=== PATIENT | female | born 1985 | race Caucasian/White ===

== ENCOUNTER → 2021-01-05 | Outpatient (REF) | payer OTHER ==
[2021-01-05 17:07] LABS: APPEARANCE, URINE CLOUDY (CLEAR); BACTERIA, URINE AUTO 1+ (NEGATIVE); BILIRUBIN, URINE AUTO NEGATIVE (NEGATIVE); BLOOD, URINE BLOOD 1+ (NEGATIVE); COLOR, URINE YELLOW (YELLOW); GLUCOSE, URINE (UA) AUTO NEGATIVE (NEGATIVE); KETONE, URINE AUTO NEGATIVE (NEGATIVE); LEUKOCYTE ESTERASE, URINE AUTO 3+ (NEGATIVE); MUCUS, URINE SMALL (NEGATIVE); NITRITE, URINE AUTO NEGATIVE (NEGATIVE); PROTEIN, URINE AUTO 1+ mg/dL (NEGATIVE); RBC, URINE AUTO 15 /HPF (0-3); SPECIFIC GRAVITY URINE AUTO 1.016 (1.002-1.035); SQUAMOUS EPITHELIAL CELL UR AU 1 /HPF (0-6); UROBILINOGEN, URINE AUTO 0.2 mg/dL (0.0-2.0); WBC, URINE AUTO TNTC /HPF (0-3)
== END ==
LOC: M LAB REF 16:36
PROVIDERS: ATTEND Physician Assistant
DX: N39.0 Urinary tract infection, site not specified (principal)

== ENCOUNTER → 2022-09-25 | Outpatient (CLI) | payer OTHER ==
[2022-09-25 11:20] LABS: HEMATOCRIT 38.3 % (36.0-47.0)
[2022-09-25 11:21] LABS: APPEARANCE, URINE HAZY (CLEAR); BACTERIA, URINE AUTO 1+ (NEGATIVE); BILIRUBIN, URINE AUTO NEGATIVE (NEGATIVE); BLOOD, URINE BLOOD NEGATIVE (NEGATIVE); COLOR, URINE YELLOW (YELLOW); GLUCOSE, URINE (UA) AUTO NEGATIVE (NEGATIVE); KETONE, URINE AUTO NEGATIVE (NEGATIVE); LEUKOCYTE ESTERASE, URINE AUTO TRACE (NEGATIVE); MUCUS, URINE SMALL (NEGATIVE); NITRITE, URINE AUTO NEGATIVE (NEGATIVE); PROTEIN, URINE AUTO NEGATIVE (NEGATIVE); RBC, URINE AUTO 1 /HPF (0-3); SPECIFIC GRAVITY URINE AUTO 1.026 (1.002-1.035); SQUAMOUS EPITHELIAL CELL UR AU 11 /HPF (0-6); WBC, URINE AUTO 8 /HPF (0-3)
[2022-09-25 11:22] LABS: BASO # 0.1 10^3/uL (0.0-0.2); BASO % 0.4 % (0.0-1.0); EOS # 0.2 10^3/uL (0.0-0.5); EOS % 1.4 % (0.0-3.0); HEMATOCRIT 38.7 % (36.0-47.0); HEMOGLOBIN 12.6 g/dl (12.0-15.5); LYMPH # 2.9 10^3/uL (1.5-5.0); LYMPH % 22.1 % (24.0-44.0); MEAN CORPUSCULAR HEMOGLOBIN 30.7 pg (27.0-33.0); MEAN CORPUSCULAR HGB CONC 32.6 g/dl (32.0-36.5); MEAN CORPUSCULAR VOLUME 94.4 fl (80.0-96.0); MONO # 0.9 10^3/uL (0.0-0.8); MONO % 6.5 % (2.0-8.0); NEUTROPHILS % 69.1 % (36.0-66.0); PLATELET COUNT, AUTOMATED 284 10^3/uL (150-450)
[2022-09-25 11:34] LABS: HEMOGLOBIN A1c 5.5 % (4.0-6.0)
[2022-09-25 11:57] LABS: ALBUMIN 3.7 G/DL (3.2-5.2); ALKALINE PHOSPHATASE 83 U/L (46-116); ALT/SGPT < 9 U/L (7.0-40); AST/SGOT < 8 U/L (<34); BILIRUBIN,TOTAL 0.3 MG/DL (0.3-1.2); BLOOD UREA NITROGEN 14 MG/DL (9-23); CALCIUM LEVEL 9.1 MG/DL (8.5-10.1); CARBON DIOXIDE LEVEL 29 MMOL/L (20-31); CHLORIDE LEVEL 105 MMOL/L (98-107); CHOLESTEROL LEVEL 203 MG/DL (<200); CHOLESTEROL RISK RATIO 4.85 (<5); CREATININE FOR GFR 0.85 MG/DL (0.55-1.30); GLOMERULAR FILTRATION RATE > 60.0 (>60); GLUCOSE, FASTING 94 MG/DL (60-100); HDL CHOLESTEROL 41.8 MG/DL (>40); LDL CHOLESTEROL 126.6 MG/DL (<100); NON-HDL-C 161.2 MG/DL; POTASSIUM SERUM 4.1 MMOL/L (3.5-5.1); SODIUM LEVEL 139 MMOL/L (136-145); TOTAL PROTEIN 6.4 G/DL (5.7-8.2); TRIGLYCERIDES LEVEL 173 MG/DL (<150)
[2022-09-25 12:45] LABS: FERRITIN 12.6 NG/ML (7.3-270.7); FREE T3 2.3 PG/ML (2.3-4.2); FREE T4 0.85 NG/DL (0.89-1.76); THYROID STIMULATING HORMONE 1.162 uIU/ML (0.55-4.78); TOTAL 25(OH) VITAMIN D 25.2 NG/ML (20.0-100.0); VITAMIN B12 LEVEL 304 PG/ML (211-911)
== END ==
LOC: M LAB 10:19
PROVIDERS: ATTEND Registered Nurse
DX: E78.2 Mixed hyperlipidemia (principal); I10 Essential (primary) hypertension; E66.9 Obesity, unspecified; E55.9 Vitamin D deficiency, unspecified

== ENCOUNTER 2023-01-19 06:23 | Emergency (ER) | payer OTHER ==
[~2023-01-19] VITALS: Ht 157.5 cm; Wt 75.1 kg
[2023-01-19 07:13] VITALS: TEMP 98
[2023-01-19] MEDS ORDERED: NS 1,000 ML IV ONE ×2 (07:25→10:40)
[2023-01-19 07:37] LABS: BASO # 0.1 10^3/uL (0.0-0.2); BASO % 0.4 % (0.0-1.0); EOS # 0.1 10^3/uL (0.0-0.5); EOS % 0.7 % (0.0-3.0); HEMATOCRIT 43.3 % (36.0-47.0); HEMOGLOBIN 14.7 g/dl (12.0-15.5); LYMPH # 2.3 10^3/uL (1.5-5.0); LYMPH % 15.3 % (24.0-44.0); MEAN CORPUSCULAR HEMOGLOBIN 30.9 pg (27.0-33.0); MEAN CORPUSCULAR HGB CONC 33.9 g/dl (32.0-36.5); MONO # 0.7 10^3/uL (0.0-0.8); MONO % 4.9 % (2.0-8.0); NEUTROPHILS # 11.9 10^3/uL (1.5-8.5); NEUTROPHILS % 78.4 % (36.0-66.0); PLATELET COUNT, AUTOMATED 332 10^3/uL (150-450); RED BLOOD COUNT 4.76 10^6/uL (4.00-5.40); WHITE BLOOD COUNT 15.1 10^3/uL (4.0-10.0)
[2023-01-19 07:46] LABS: ERYTHROCYTE SEDIMENTATION RATE 41 mm/hr (0-20)
[2023-01-19 07:53] LABS: INR 1.02; PROTHROMBIN TIME 13.1 SECONDS (12.5-14.5)
[2023-01-19 07:56] LABS: D-DIMER QUANT < 0.27 ug/mL (<0.5)
[2023-01-19 07:59] LABS: CK-MB VALUE MASS 1.2 NG/ML (<3.6)
[2023-01-19 08:02] LABS: ALBUMIN 4.1 G/DL (3.2-5.2); ALKALINE PHOSPHATASE 83 U/L (46-116); ALT/SGPT 14 U/L (7.0-40); AST/SGOT 13 U/L (<34); BILIRUBIN,DIRECT 0.1 MG/DL (<0.4); BILIRUBIN,TOTAL 0.4 MG/DL (0.3-1.2); BLOOD UREA NITROGEN 12 MG/DL (9-23); CALCIUM LEVEL 10.2 MG/DL (8.5-10.1); CARBON DIOXIDE LEVEL 23 MMOL/L (20-31); CHLORIDE LEVEL 104 MMOL/L (98-107); CPK CREATINE PHOSPHOKINASE 105 U/L (34-145); CREATININE FOR GFR 0.84 MG/DL (0.55-1.30); GLOMERULAR FILTRATION RATE > 60.0 (>60); GLUCOSE, FASTING 100 MG/DL (60-100); MB/CK RELATIVE INDEX 1.14 (< OR =4); POTASSIUM SERUM 4.6 MMOL/L (3.5-5.1); SODIUM LEVEL 139 MMOL/L (136-145); TOTAL PROTEIN 7.5 G/DL (5.7-8.2)
[2023-01-19 08:03] LABS: THYROID STIMULATING HORMONE 1.792 uIU/ML (0.55-4.78); THYROXINE (T4) 10.8 UG/DL (4.5-10.9)
[2023-01-19 08:06] LABS: FREE THYROXINE INDEX 3.9 % (1.3-4.8); HCG, SERUM QUALITATIVE NEGATIVE (NEGATIVE); T UPTAKE 35.9 % (22.5-37.0)
[2023-01-19 08:23] LABS: RSV AMPLIFICATION NEGATIVE (NEGATIVE)
[2023-01-19] MEDS ORDERED: LORazepam 2 MG/ML 1ML VIAL IV STA (08:40)
[2023-01-19] MEDS ORDERED: METOCLOPRAMIDE 10MG TAB PO ONE (11:30)
[2023-01-19] MEDS ORDERED: KETOROLAC 30 MG/ML 1ML VIAL IV ONE (11:30)
[2023-01-19] MEDS ORDERED: AMLO25TA PO (11:31)
[2023-01-19] MEDS ORDERED: amLODIPine 5 MG TAB PO ONE (11:35)
[2023-01-19 11:44] VITALS: BP 174/96
[2023-01-19 12:15] VITALS: BP 188/98; O2SAT 99
[2023-01-20] MEDS ORDERED: EPIP0.3I2 (13:15)
[2023-01-20] MEDS ORDERED: QUET100T2 (13:15)
[2023-01-20] MEDS ORDERED: PRAZ1CAP (13:15)
[2023-01-20] MEDS ORDERED: LAMO100T3 (13:15)
[2023-01-20] MEDS ORDERED: LAMO100T3 PO (22:10)
[2023-01-20] MEDS ORDERED: AMLO2.5T3 PO (22:10)
[2023-01-20] MEDS ORDERED: PRAZ1CAP PO (22:10)
[2023-01-20] MEDS ORDERED: QUET100T2 PO (22:10)
[2023-01-20] MEDS ORDERED: EPIP0.3I2 IM (22:10)
== END 2023-01-19 12:44 | disposition home or self-care (01) ==
LOC: M ED 06:23
DX: R00.2 Palpitations (principal); D72.829 Elevated white blood cell count, unspecified; I10 Essential (primary) hypertension; J45.909 Unspecified asthma, uncomplicated; E78.5 Hyperlipidemia, unspecified; I45.10 Unspecified right bundle-branch block; F17.200 Nicotine dependence, unspecified, uncomplicated; Z88.0 Allergy status to penicillin; Z88.2 Allergy status to sulfonamides; Z88.5 Allergy status to narcotic agent; Z88.8 Allergy status to other drugs, medicaments and biological substances; Z91.040 Latex allergy status; Z91.030 Bee allergy status; Z79.811 Long term (current) use of aromatase inhibitors; Z79.899 Other long term (current) drug therapy
CPT/HCPCS: 71045; 80048; 80076; 82550; 82553; 83605; 83880; 84436; 84443; 84479; 84703; 85025; 85379; 85610; 85652; 85730; 86140; 87040; 87631; 93005; 93041; 94760; 96361; 96374; 96375; 99285; J1885; J2060

== ENCOUNTER 2023-01-20 12:57 | Inpatient (IN) | payer OTHER ==
[~2023-01-20] VITALS: Ht 157.5 cm; Wt 75.1 kg
[~2023-01-20 12:57] MED LIST: AMLO25TA PO
[2023-01-20] MEDS ORDERED: EPIP0.3I2 (13:15)
[2023-01-20] MEDS ORDERED: QUET100T2 (13:15)
[2023-01-20] MEDS ORDERED: LAMO100T3 (13:15)
[2023-01-20] MEDS ORDERED: PRAZ1CAP (13:15)
[2023-01-20 13:41] LABS: BASO # 0.1 10^3/uL (0.0-0.2); BASO % 0.5 % (0.0-1.0); EOS # 0.2 10^3/uL (0.0-0.5); EOS % 1.2 % (0.0-3.0); HEMATOCRIT 42.3 % (36.0-47.0); HEMOGLOBIN 14.4 g/dl (12.0-15.5); LYMPH # 2.8 10^3/uL (1.5-5.0); LYMPH % 22.1 % (24.0-44.0); MEAN CORPUSCULAR VOLUME 91.2 fl (80.0-96.0); MONO # 0.8 10^3/uL (0.0-0.8); MONO % 6.2 % (2.0-8.0); NEUTROPHILS # 8.9 10^3/uL (1.5-8.5); NEUTROPHILS % 69.7 % (36.0-66.0); PLATELET COUNT, AUTOMATED 321 10^3/uL (150-450); RED BLOOD COUNT 4.64 10^6/uL (4.00-5.40); WHITE BLOOD COUNT 12.8 10^3/uL (4.0-10.0)
[2023-01-20 14:09] LABS: C REACTIVE PROTEIN QUANTITATIV < 0.40 MG/DL (<1.0); LIPASE 33 U/L (12-53)
[2023-01-20 14:10] LABS: CK-MB VALUE MASS < 1.0 NG/ML (<3.6)
[2023-01-20 14:14] LABS: FREE T4 1.13 NG/DL (0.89-1.76)
[2023-01-20 14:15] LABS: THYROID STIMULATING HORMONE 1.804 uIU/ML (0.55-4.78)
[2023-01-20 14:16] LABS: ALBUMIN 3.9 G/DL (3.2-5.2); ALKALINE PHOSPHATASE 76 U/L (46-116); ALT/SGPT 15 U/L (7.0-40); AST/SGOT 12 U/L (<34); BILIRUBIN,DIRECT < 0.1 MG/DL (<0.4); BILIRUBIN,TOTAL 0.3 MG/DL (0.3-1.2); BLOOD UREA NITROGEN 10 MG/DL (9-23); CALCIUM LEVEL 9.2 MG/DL (8.5-10.1); CARBON DIOXIDE LEVEL 23 MMOL/L (20-31); CHLORIDE LEVEL 106 MMOL/L (98-107); CPK CREATINE PHOSPHOKINASE 86 U/L (34-145); CREATININE FOR GFR 0.78 MG/DL (0.55-1.30); GLOMERULAR FILTRATION RATE > 60.0 (>60); GLUCOSE, FASTING 108 MG/DL (60-100); MB/CK RELATIVE INDEX 1.16 (< OR =4); SODIUM LEVEL 140 MMOL/L (136-145)
[2023-01-20 14:27] LABS: ERYTHROCYTE SEDIMENTATION RATE 42 mm/hr (0-20)
[2023-01-20] MEDS ORDERED: ONDANSETRON 4MG 2ML VIAL IV ONE (14:55)
[2023-01-20] MEDS ORDERED: ISOVUE-370 76% 100ML VIAL As Ordered ONE (14:59)
[2023-01-20 15:13] LABS: CK-MB VALUE MASS < 1.0 NG/ML (<3.6)
[2023-01-20 15:15] LABS: CPK CREATINE PHOSPHOKINASE 83 U/L (34-145)
[2023-01-20] MEDS ORDERED: LORazepam 0.5 MG TAB PO ONE (20:35)
[2023-01-20] MEDS ORDERED: NICOTINE 21MG/24HR 1 EA TRANSDERMAL TD ONE (20:35)
[2023-01-20] MEDS ORDERED: lamoTRIgine 100MG TAB PO SCH (21:00)
[2023-01-20] MEDS ORDERED: QUEtiapine FUMARATE 100 MG TAB PO SCH (21:00)
[2023-01-20] MEDS ORDERED: AMLO2.5T3 PO (22:10)
[2023-01-20] MEDS ORDERED: PRAZ1CAP PO (22:10)
[2023-01-20] MEDS ORDERED: EPIP0.3I2 IM (22:10)
[2023-01-20] MEDS ORDERED: HOME MED LIST COMPLETE! XX SCH (22:10)
[2023-01-20] MEDS ORDERED: QUET100T2 PO (22:10)
[2023-01-20] MEDS ORDERED: LAMO100T3 PO (22:10)
[2023-01-20] MEDS ORDERED: MOM 30ML SUSPENSION UDC PO PRN (22:20)
[2023-01-20] MEDS ORDERED: ACETAMINOPHEN TAB 650MG DOSE (2X325MG) PO PRN (22:20)
[2023-01-20] MEDS ORDERED: MAALOX 30 ML SUSP *UDC PO PRN (22:20)
[2023-01-20] MEDS ORDERED: amLODIPine 5 MG TAB PO ONE (22:20)
[2023-01-20] MEDS: PRAZOSIN 1 MG CAP PO SCH (22:31)
[2023-01-20 22:32] LABS: RSV AMPLIFICATION NEGATIVE (NEGATIVE)
[2023-01-20 22:48] LABS: CHOLESTEROL LEVEL 214 MG/DL (<200); CHOLESTEROL RISK RATIO 5.64 (<5); HDL CHOLESTEROL 37.9 MG/DL (>40); LDL CHOLESTEROL 152.5 MG/DL (<100); NON-HDL-C 176.1 MG/DL; TRIGLYCERIDES LEVEL 118 MG/DL (<150)
[2023-01-20 23:58] VITALS: BP 154/86; TEMP 97.4; O2SAT 97
[2023-01-21 04:05] VITALS: BP 135/86; TEMP 97.7; O2SAT 96
[2023-01-21] MEDS: HEPARIN SOD (PORCINE) 5000UNITS/ML 1ML VIAL/SYRINGE SC SCH ×2 (04:52→13:48)
[2023-01-21 07:54] VITALS: BP 154/100; TEMP 98; O2SAT 100
[2023-01-21] MEDS: PRAZOSIN 1 MG CAP PO SCH (08:13)
[2023-01-21 08:21] LABS: HEMOGLOBIN A1c 5.4 % (4.0-6.0)
[2023-01-21] MEDS ORDERED: ROSUVASTATIN 10 MG TAB (CRESTOR) PO SCH (09:00)
[2023-01-21] MEDS ORDERED: NICOTINE 21MG/24HR 1 EA TRANSDERMAL TD PRN (09:00)
[2023-01-21] MEDS ORDERED: amLODIPine 5 MG TAB PO SCH (09:00)
[2023-01-21] MEDS ORDERED: METOPROLOL TART 12.5 MG PER 1/2 TAB PO SCH (09:00)
[2023-01-21 09:27] VITALS: BP 161/91; TEMP 97.1; O2SAT 97
[2023-01-21 09:30] VITALS: BP 161/91; PULSE 106
[2023-01-21] MEDS ORDERED: ALPRAZolam 0.25 MG TAB PO PRN (10:00)
[2023-01-21 10:32] VITALS: BP 161/91
[2023-01-21 10:51] LABS: CK-MB VALUE MASS < 1.0 NG/ML (<3.6)
[2023-01-21 10:53] LABS: CPK CREATINE PHOSPHOKINASE 64 U/L (34-145); MB/CK RELATIVE INDEX 1.56 (< OR =4)
[2023-01-21 11:04] LABS: CK-MB VALUE MASS < 1.0 NG/ML (<3.6)
[2023-01-21 11:06] LABS: CPK CREATINE PHOSPHOKINASE 63 U/L (34-145); MB/CK RELATIVE INDEX 1.58 (< OR =4)
[2023-01-21 12:00] VITALS: BP 136/80; TEMP 97.9; O2SAT 98
[2023-01-21] MEDS ORDERED: ONDANSETRON 4MG TAB PO ONE (12:45)
[2023-01-21] MEDS ORDERED: ROSU20TA61 PO (14:21)
[2023-01-21] MEDS ORDERED: AMLO1TAB24 PO (14:21)
[2023-01-21] MEDS ORDERED: METO1TAB87 PO ×2 (14:21→14:27)
[2023-01-21] MEDS ORDERED: ALPR0.25 PO ×4 (14:21→14:55)
== END 2023-01-21 15:16 | disposition home or self-care (01) | DRG 199 ==
LOC: M ED 12:57 → M ED INP 22:54 → M PCU 23:38
PROVIDERS: ADMIT Family Medicine; ATTEND Family Medicine
DX: I16.0 Hypertensive urgency (principal); J45.909 Unspecified asthma, uncomplicated; G45.9 Transient cerebral ischemic attack, unspecified; F41.9 Anxiety disorder, unspecified; F31.9 Bipolar disorder, unspecified; G43.909 Migraine, unspecified, not intractable, without status migrainosus; E78.5 Hyperlipidemia, unspecified; F43.10 Post-traumatic stress disorder, unspecified; R20.2 Paresthesia of skin; G47.00 Insomnia, unspecified; K21.9 Gastro-esophageal reflux disease without esophagitis; F17.210 Nicotine dependence, cigarettes, uncomplicated; R07.89 Other chest pain; Z79.899 Other long term (current) drug therapy; Z88.0 Allergy status to penicillin; Z88.2 Allergy status to sulfonamides; Z88.8 Allergy status to other drugs, medicaments and biological substances; Z88.5 Allergy status to narcotic agent; Z91.013 Allergy to seafood; Z91.040 Latex allergy status

== ENCOUNTER → 2023-01-29 | Outpatient (CLI) | payer OTHER ==
[~2023-01-29] MED LIST changes: +ALPR0.25 PO; +AMLO1TAB24 PO; +AMLO2.5T3 PO; +EPIP0.3I2; +EPIP0.3I2 IM; +LAMO100T3; +LAMO100T3 PO; +METO1TAB87 PO; +PRAZ1CAP; +PRAZ1CAP PO; +QUET100T2; +QUET100T2 PO; +ROSU20TA61 PO
== END ==
LOC: M EKG 08:56
PROVIDERS: ATTEND Registered Nurse
DX: R00.2 Palpitations (principal); R00.0 Tachycardia, unspecified; R53.83 Other fatigue

== ENCOUNTER → 2023-08-13 | Outpatient (CLI) | payer OTHER ==
[2023-08-13 14:08] LABS: APPEARANCE, URINE HAZY (CLEAR); BACTERIA, URINE AUTO NEGATIVE (NEGATIVE); BILIRUBIN, URINE AUTO NEGATIVE (NEGATIVE); BLOOD, URINE BLOOD NEGATIVE (NEGATIVE); COLOR, URINE YELLOW (YELLOW); GLUCOSE, URINE (UA) AUTO NEGATIVE (NEGATIVE); KETONE, URINE AUTO NEGATIVE (NEGATIVE); LEUKOCYTE ESTERASE, URINE AUTO TRACE (NEGATIVE); MUCUS, URINE SMALL (NEGATIVE); NITRITE, URINE AUTO NEGATIVE (NEGATIVE); PROTEIN, URINE AUTO NEGATIVE (NEGATIVE); RBC, URINE AUTO 1 /HPF (0-3); SPECIFIC GRAVITY URINE AUTO 1.018 (1.002-1.035); SQUAMOUS EPITHELIAL CELL UR AU 3 /HPF (0-6); UROBILINOGEN, URINE AUTO 0.2 mg/dL (0.0-2.0); WBC, URINE AUTO 7 /HPF (0-3)
[2023-08-13 14:27] LABS: BASO # 0.1 10^3/uL (0.0-0.2); BASO % 0.5 % (0.0-1.0); EOS # 0.3 10^3/uL (0.0-0.5); EOS % 2.1 % (0.0-3.0); HEMATOCRIT 37.4 % (36.0-47.0); HEMOGLOBIN 12.3 g/dl (12.0-15.5); LYMPH # 3.4 10^3/uL (1.5-5.0); LYMPH % 28.1 % (24.0-44.0); MEAN CORPUSCULAR HEMOGLOBIN 31.3 pg (27.0-33.0); MEAN CORPUSCULAR HGB CONC 32.9 g/dl (32.0-36.5); MEAN CORPUSCULAR VOLUME 95.2 fl (80.0-96.0); MONO # 0.8 10^3/uL (0.0-0.8); MONO % 6.6 % (2.0-8.0); NEUTROPHILS # 7.5 10^3/uL (1.5-8.5); NEUTROPHILS % 62.4 % (36.0-66.0); PLATELET COUNT, AUTOMATED 256 10^3/uL (150-450); RED BLOOD COUNT 3.93 10^6/uL (4.00-5.40)
[2023-08-13 14:45] LABS: THYROID STIMULATING HORMONE 2.301 uIU/ML (0.55-4.78); TOTAL 25(OH) VITAMIN D 19.4 NG/ML (20.0-100.0)
[2023-08-13 14:46] LABS: VITAMIN B12 LEVEL 314 PG/ML (211-911)
[2023-08-13 14:47] LABS: ALBUMIN 3.4 G/DL (3.2-5.2); ALKALINE PHOSPHATASE 83 U/L (46-116); ALT/SGPT 15 U/L (7.0-40); AST/SGOT < 8 U/L (<34); BILIRUBIN,TOTAL 0.2 MG/DL (0.3-1.2); BLOOD UREA NITROGEN 8 MG/DL (9-23); CARBON DIOXIDE LEVEL 28 MMOL/L (20-31); CHLORIDE LEVEL 109 MMOL/L (98-107); CHOLESTEROL LEVEL 102 MG/DL (<200); CHOLESTEROL RISK RATIO 2.72 (<5); CREATININE FOR GFR 0.85 MG/DL (0.55-1.30); FREE T4 0.94 NG/DL (0.89-1.76); GLOMERULAR FILTRATION RATE > 60.0 (>58); GLUCOSE, FASTING 102 MG/DL (60-100); HDL CHOLESTEROL 37.4 MG/DL (>40); LDL CHOLESTEROL 36.2 MG/DL (<100); NON-HDL-C 64.6 MG/DL; POTASSIUM SERUM 4.1 MMOL/L (3.5-5.1); SODIUM LEVEL 139 MMOL/L (136-145); TOTAL PROTEIN 6.1 G/DL (5.7-8.2); TRIGLYCERIDES LEVEL 142 MG/DL (<150)
[2023-08-13 14:53] LABS: FREE T3 2.9 PG/ML (2.3-4.2)
== END ==
LOC: M LAB 13:24
PROVIDERS: ATTEND Registered Nurse
DX: I10 Essential (primary) hypertension (principal); E78.2 Mixed hyperlipidemia; E55.9 Vitamin D deficiency, unspecified; E66.9 Obesity, unspecified